=== PATIENT | male | born 1955 | race Caucasian/White ===

== ENCOUNTER → 2018-03-05 | Outpatient (CLI) | payer BC | LOC: LAB 18:50 → LAB SHORT 18:50 | DX: L02.223 Furuncle of chest wall (principal) | CPT/HCPCS: 87070; 87075; 87076; 87205 ==

== ENCOUNTER 2019-06-20 10:52 | Inpatient (IN) | payer BC ==
[~2019-06-20] VITALS: Ht 188 cm; Wt 106.6 kg
[2019-06-20] MEDS ORDERED: Amlodipine Besy10 MG PO (12:39)
[2019-06-20] MEDS ORDERED: LORCET 5-325 M1 EACH PO (12:39)
[2019-06-20] MEDS ORDERED: ALLO100 PO (12:39)
[2019-06-20] MEDS ORDERED: LOSARTAN POTASS50 MG PO (12:40)
[2019-06-20] MEDS ORDERED: Atenolol50 MG PO (12:40)
[2019-06-20] MEDS ORDERED: Aspir 8181 MG PO (12:59)
--- NOTE | 2019-06-20 18:11 | NUR ---
SHIFT SUMMARY PT NEW ADMIT TODAY. PT EATING AND DRINKING. PT BEEN ASSISTED WITH ADL'S PRN. PT HAS CHEST TUBE IN PLACE TO WATER-SEAL WITH APPR BUBBLING. PT BEEN MED FOR PAIN AND REPOSITIONED FOR COMFORT. PT REPORTS HAVING NO SORES OR ABRASIONS.
--- NOTE | 2019-06-21 04:52 | NUR ---
SUMMARY NO ACUTE CHANGES NOTED FROM ASSESSMENT. PT REMAINS ON 2 L VIA NC. CHEST TUBE IN PLACE TO LOW SUCTION, SECURED TO FLOOR, NO AIR LEAKS/CREPITUS NOTED. SMALL AMOUNT OF SANGUINOUS DRAINAGE REMAINS PRESENT IN DRESSING. PT DENIES SOB, GAURDS BREATHING DUE TO PAIN, DEEP BREATHING ENC, EDUCATION PROVIDED. VSS. PAIN MANAGED PER EMAR. PT'S IS AT THE BEDSIDE. CALL LIGHT IN REACH. TM
--- NOTE | 2019-06-21 08:11 | NUR ---
DR. DENTON IN ROOM AT THIS TIME. CHEST TUBE CHANGED TO WATER SEAL.
--- NOTE | 2019-06-21 19:42 | NUR ---
SUMMARY: PT ADMITTED FOR RIB FX AND PNEUMOTHORAX. SAW IMPROVEMENT TODAY. PT ABLE TO AMBULATE TO THE BATHROOM, WITHOUT MAJOR PAIN. EDUCATED ON THE IMPORTANCE OF USING THE I.S. AND DEEP BREATHING WHICH PT HAS BEEN DOING WELL. MEDICATED FOR PAIN ABOUT Q4 WITH 2 NARCO. CHEST TUBE CONTINUES TO BE TO WATER SEAL, NO ACUTE CHANGE. BREATHS ARE EVEN AND UNLABORED. DENIES ANY SOB. PLAN IS FOR REPEAT CHEST X-RAY IN THE AM. REPORT GIVEN TO SAMPSON BLANTON.
--- NOTE | 2019-06-22 04:45 | NUR ---
06/22/19 0430 ZAMUDIO LEAKING AND DC'D. NEW #16 F ZAMUDIO INSERTED WITHOUT PROBLEMS. RETURN OF CLEAR CHARLES URINE. 325 ML IN BAG AND EMPTIED. SECURED WITH STAT-LOCK TO THIGH. PARTIAL BATH AND BED LINEN CHANGED.
--- NOTE | 2019-06-22 04:49 | NUR ---
06/22/19 0430 PREVIOUS NOTE IN ERROR--WRONG PT.
--- NOTE | 2019-06-22 06:40 | NUR ---
06/22/19 0545 C/O NOT BEING ABLE TO SLEEP EARLIER BUT PRESENTLY HE IS SNORING. VITALS STABLE. MEDICATED TWICE FOR RIB/CHEST DISCOMFORT. CHEST TUBE PATENT TO WATER SEAL. PT WOULD GET UP TO BATHROOM INDEPENDENTLY FOR VOIDINGS.
[2019-06-22] MEDS ORDERED: DIAZ5 PO (13:55)
[2019-06-22] MEDS ORDERED: HYDR1TAB94 PO (14:05)
--- NOTE | 2019-06-22 14:48 | NUR ---
DISCHARGE PT MET DISCHARGE CRITERIA. AMBULATING EASILY, PAIN CONTROLLED, TOLERATING DIET. DISCUSSED IS, PREVENTING CONSTIPATION, AND PAIN CONTROL IN DEPTH.
== END 2019-06-22 14:50 | disposition home or self-care (01) | DRG 200 ==
LOC: ER 10:52 → SURS 10:53 → ER 12:19 → SURS 12:19
PROVIDERS: ADMIT Surgery
PROC: 0W9B30Z Drainage of Left Pleural Cavity with Drainage Device, Percutaneous Approach (ICD-10-PCS; principal; 2019-06-20)
DX: J93.9 Pneumothorax, unspecified (principal); S22.42XA Multiple fractures of ribs, left side, initial encounter for closed fracture; I10 Essential (primary) hypertension; F17.220 Nicotine dependence, chewing tobacco, uncomplicated; W19.XXXA Unspecified fall, initial encounter; Y93.K1 Activity, walking an animal; Y92.9 Unspecified place or not applicable
CPT/HCPCS: 32551; 71045; 96372; 96374-59; 96375-59; 96376; 97110; 97162; 97530; 99284-25; A9270-GY; G0378; J1170; J1650; J2405

== ENCOUNTER → 2024-12-16 | Outpatient (CLI) | payer OTHER ==
[~2024-12-16] MED LIST: ALLO100 PO; Amlodipine Besy10 MG PO; Aspir 8181 MG PO; Atenolol50 MG PO; DIAZ5 PO; HYDR1TAB94 PO; LORCET 5-325 M1 EACH PO; LOSARTAN POTASS50 MG PO
[2024-12-17 08:07] LABS: Stool Occult Bld Immuno 1 Negative (NEGATIVE)
== END | disposition home or self-care (01) ==
LOC: LAB SHORT 09:30 → LAB 09:30
PROVIDERS: Family Medicine
DX: Z12.11 Encounter for screening for malignant neoplasm of colon (principal)
CPT/HCPCS: G0328